=== PATIENT | female | born 1965 | race Caucasian/White ===

== ENCOUNTER 2016-12-19 02:24 | Emergency (ER) | payer MEDICAID ==
[2016-12-19 03:04] VITALS: BP 138/82
== END 2016-12-19 03:04 | disposition home or self-care (01) ==
LOC: ED 02:24
DX: L02.01 Cutaneous abscess of face (principal); I10 Essential (primary) hypertension; Z88.1 Allergy status to other antibiotic agents; Z88.8 Allergy status to other drugs, medicaments and biological substances; Z88.5 Allergy status to narcotic agent